=== PATIENT | female | born 1940 | race Caucasian/White ===

== ENCOUNTER 2019-03-22 10:23 | Inpatient (IN) ==
[2019-03-22] MEDS ORDERED: TYLENOL PO PRN ×2 (15:42→16:22)
[2019-03-22] MEDS ORDERED: ZOFRAN IV PRN ×2 (15:42→16:22)
[2019-03-22] MEDS ORDERED: NS 1,000 ML IV SCH (15:45)
[2019-03-22 16:26] LABS: BASO# 0.02 X1000 (0.0-0.2); BASO% 0.1 % (0.0-0.8); EOS# 0.04 X1000 (0.0-0.7); EOS% 0.2 % (0.0-10.0); HEMATOCRIT 43.9 % (37.0-47.0); IMM GRAN# 0.04 X1000 (0.0-0.04); IMM GRAN% 0.2 % (0.0-0.5); LYMPH# 1.35 X1000 (1.2-3.4); LYMPH% 8.3 % (20.5-51.1); MCH 30.4 PG (27-31); MCHC 31.9 g/dL (33-37); MCV 95.2 FL (81-99); MONO# 1.29 X1000 (0.11-0.59); MONO% 7.9 % (1.7-9.3); MPV 10.5 FL (7.4-10.4); NEUT# 13.62 X1000 (1.4-6.5); NEUT% 83.3 % (42.2-75.2); PLT 319 X1000 (130-400); RBC 4.61 XMIL (4.2-5.4); WBC 16.36 X1000 (4.8-10.8)
[2019-03-22 16:37] LABS: INR 1.02; PROTIME 13.5 Seconds (11.0-16.0)
[2019-03-22 16:38] LABS: PTT 27.6 Seconds (22.3-41.8)
[2019-03-22 16:47] LABS: ALB/GLOB RATIO 1.8; ALBUMIN 4.2 g/dL (3.5-5.0); CALCIUM 9.3 mg/dL (8.8-10.2); CREATININE 1.3 mg/dL (0.5-0.9); POTASSIUM 4.3 mmol/L (3.5-5.1); TOTAL BILIRUBIN 0.61 mg/dL (0.20-1.00); TOTAL PROTEIN 6.5 g/dL (6.3-8.3)
[2019-03-22] MEDS: NS 1,000 ML IV SCH (17:05)
[2019-03-22] MEDS: ZOSYN 3.375 GM in NS 50 ML IV SCH ×2 (17:06→22:22)
--- NOTE | 2019-03-22 17:22 | HISTORY AND PHYSICAL ---
PRIMARY CARE PROVIDER: Dr. Austen Au CHIEF COMPLAINT: Right lower quadrant back pain along with some shortness of breath. HISTORY OF PRESENT ILLNESS: Ms. Caitlin Sr is a 79-year-old female with a medical history of left ureteral stone that required stent and lithotripsy back in 2011. Also history of GERD, hypertension, hypothyroidism, depression, and low blood sugar. Presented to [facility] with at least 1 week's worth of right back pain and some bladder pain and intermittent fever but called her family member this morning at 5:30 with some shortness of breath secondary to the pain. She went to the emergency department at [facility] where she was worked up and it revealed she had acute pyelonephritis and right ureterolithiasis. The CT there of the abdomen and pelvis without contrast showed obstructive distal right ureteral stone with right perinephric stranding that could reflect pyelonephritis and it showed right nephrolithiasis along with some diverticulosis. Given that they do not have advanced or any physicians to care for urology type symptoms they spoke with Dr. Story on the phone, who then accepted the patient as a transfer here for intervention. We were asked to take this patient and follow along with her comorbidities. On further questioning her shortness of breath apparently, a little over week ago, she was taken to an urgent care and had a left-sided pneumonia according to her, she had already finished antibiotics for that. Her chest x-ray at [facility], which was a single-view did not show any acute findings. PAST MEDICAL HISTORY: 1. Hypertension. 2. Hypothyroidism. 3. Depression. 4. History of ureterolithiasis. 5. Diverticulosis. 6. Right nephrolithiasis. 7. COPD. 8. History of urinary tract infections. SURGICAL HISTORY: 1. Left ureteral stone with lithotripsy, and stent placement. 2. Skin biopsies. 3. Hysterectomy. 4. Colon resection secondary to polyps. SOCIAL HISTORY: Quit smoking in 2004. Prior to that she started at the age of 18 and smoked less than a half pack per day. No alcohol or illicit drug use. She has 2 adult children. She lives alone. FAMILY HISTORY: Mother had lung cancer. Father had diabetes. ALLERGIES: Codeine makes her climb the greenwood according to her. HOME MEDICATIONS: 1. Effexor XR 75 mg p.o. daily. 2. Norvasc 5 mg p.o. daily. 3. Extended release once a day. 4. Synthroid 75 mcg p.o. daily. She states she takes some other medicines so those still need to be reconciled here. REVIEW OF SYSTEMS: Fourteen point review of systems are complete and all were negative except for those mentioned above in the HPI. PHYSICAL EXAMINATION: VITAL SIGNS: Temperature 97.9 degrees, heart rate 59, respiratory rate 16, blood pressure 188/73, O2 saturation 96% on room air. She is 5 feet 1 inch tall, 99 pounds. BMI is 18.8. GENERAL: Ms. Caitlin Sr is a 79-year-old female. She is in no acute distress. She is able to answer questions appropriately. HEENT: Atraumatic, normocephalic. Pupils equal, round, reactive to light. Extraocular movements intact. Mucous membranes are moist. NECK: Trachea midline. CARDIOVASCULAR: S1, S2. Regular rate and rhythm. No rubs, gallops, murmurs. No lower extremity edema. +2 dorsalis and radial pulses. Negative JVD or carotid bruits. PULMONARY: Clear to auscultation. Bilateral breath sounds. No accessory muscle use or work of breathing noted. GASTROINTESTINAL: Abdomen soft, tender in the epigastric region and in the right upper quadrant region to the flank area. Positive bowel sounds x4. EXTREMITIES: Moves all extremities equally with decreased range of motion. NEUROLOGIC: A and O x3. Follows commands. Sensory is intact. She is hard of hearing. SKIN: Warm, dry, intact. LABORATORY DATA: We have no labs here yet. Reviewing labs that were sent from [facility], CBC, white blood cell count 93182, hemoglobin 14, hematocrit 43, platelet count 348,000. CMP: Sodium 137, potassium 4.2, BUN 27, creatinine is 1.2, glucose is 132, bilirubin 0.8, AST 18, ALT 16, albumin 4.4, calcium 9.4. Urinalysis positive leukocytes, negative nitrite, positive glucose and ketones, had 3+ blood in it. It was cloudy in color, had small amount of bacteria in it. IMAGING: Reported imaging at [facility]: The CT abdomen and pelvis without contrast showed obstructive distal right ureteral stone with right perinephric stranding that could reflect pyelonephritis. It also showed right nephrolithiasis and diverticulosis. Chest x-ray showed no acute cardiopulmonary process. ASSESSMENT AND PLAN: 1. Obstructive distal right ureteral stone with right perinephric stranding along with pyelonephritis. We will start her on some antibiotics. We have consulted Dr. Story for possible lithotripsy or stone extraction. 2. Chronic obstructive pulmonary disease, no exacerbation. 3. Recent treatment of pneumonia. No obvious signs and symptoms of pneumonia. 4. Depression. Continue home medications once it is verified. 5. Hypothyroidism. Continue Synthroid once it is verified. 6. Hypertension. Again home medications still need to be verified. 7. Proton pump inhibitor if we need to have that. 8. Deep venous thrombosis prophylaxis with sequential compression devices. Dictated by YAHAIRA Asif for Stevenson Esparza MD cc: YAHAIRA Asif MD Chad McElroy, MD MTDD
--- NOTE | 2019-03-22 17:33 | EKG Report ---
Test Performed on : 03/22/2019 4:21:59 PM Test Reason : rythm eval Blood Pressure : / mmHG Vent. Rate : 065 BPM Atrial Rate : 065 BPM P-R Int : 162 ms QRS Dur : 072 ms QT Int : 430 ms P-R-T Axes : 073 085 083 degrees QTc Int : 447 ms Normal sinus rhythm. 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
--- NOTE | 2019-03-22 17:57 | HISTORY AND PHYSICAL ---
ADDENDUM: I have seen and examined Ms. Sr today. At her bedside were her sister and her son. Ms. Sr was transferred from [facility] in [place] to our institution for a higher level of care. Ms. Sr presented with some right-sided abdominal discomfort and flank pain, associated with some fever about 3 days ago. She went to the outside facility where she was evaluated and was found to have a right ureteral stone with obstruction, with stranding consistent with pyelonephritis on a CT scan. She was transferred over here for urology consult. PHYSICAL EXAMINATION: GENERAL: Ms. Sr is a 79-year-old female. She is slightly underweight. She was not in any distress. HEENT: Mucosa is pink and moist. Anicteric. Acyanotic. NECK: Supple. CHEST: Air entry was bilaterally reduced. A few distant wheezing. She has a history of COPD. ABDOMEN: Soft. Tender on the right flank. EXTREMITIES: No pedal edema. FIRE LOSS PREVENTION ENGINEER: The patient is awake, alert and oriented. LABORATORY DATA: Her lab work has also been reviewed. She has slight leukocytosis with WBC of 16.35. Chemistry was also reviewed. Creatinine is 1.2. The patient's TSH is 1.26. ASSESSMENT: 1. Right-side pyelonephritis. 2. Right ureteral nephrolithiasis with obstruction. 3. Renal failure, presumably acute due to obstructive uropathy. 4. Hypothyroidism. The patient's TSH is actually low, so we will cut back on her supplement. 5. History of hypertension, stable. PLAN: In general, Ms. Sr is going to be on IV fluids and has been started on antibiotics. I have reviewed her home medications and restarted her back. Dr. Story has been notified, and he has made the patient NPO for tomorrow. Hopefully urological intervention will be done to get the stone out. We will follow up with further recommendations from Dr. Story the urologist. Please refer to the details of the history and physical that has been dictated by the VETERINARY MILK SPECIALIST in the chart. cc: Keven Tello MD
[2019-03-22 18:50] LABS: URINE SOURCE CLEAN CATCH
[2019-03-22 18:53] LABS: BILIRUBIN URINE NEGATIVE (NEGATIVE); BLOOD URINE MODERATE (NEGATIVE); COLOR STRAW; GLUCOSE URINE NEGATIVE (NEGATIVE); KETONE URINE TRACE mg/dL (NEGATIVE); LEUKOCYTES URINE NEGATIVE (NEGATIVE); NITRITE URINE NEGATIVE (NEGATIVE); PROTEIN URINE NEGATIVE (NEGATIVE); TURBIDITY URINE CLEAR (CLEAR); UROBILINOGEN URINE NORMAL (NORMAL)
[2019-03-22 18:54] LABS: UR EPITHELIAL CELLS <10 /HPF (<10); URINE BACTERIA NEGATIVE /HPF; URINE RBC TNTC /HPF (<10); URINE WBC <10 /HPF (<10)
[2019-03-22] MEDS: DEPAKOTE PO SCH (22:21)
[2019-03-22] MEDS: ZYPREXA PO SCH (22:21)
[2019-03-22] MEDS: DITROPAN PO SCH (22:21)
[2019-03-22] MEDS: REMERON PO SCH (22:21)
[2019-03-23 06:45] LABS: BASO# 0.05 X1000 (0.0-0.2); BASO% 0.5 % (0.0-0.8); EOS# 0.26 X1000 (0.0-0.7); EOS% 2.7 % (0.0-10.0); HEMATOCRIT 37.4 % (37.0-47.0); LYMPH# 1.94 X1000 (1.2-3.4); MCH 30.8 PG (27-31); MCHC 32.1 g/dL (33-37); MCV 96.1 FL (81-99); MONO# 1.01 X1000 (0.11-0.59); MONO% 10.4 % (1.7-9.3); MPV 10.3 FL (7.4-10.4); NEUT# 6.46 X1000 (1.4-6.5); NEUT% 66.4 % (42.2-75.2); PLT 268 X1000 (130-400); RBC 3.89 XMIL (4.2-5.4); RDW 14.3 % (11.5-14.5); WBC 9.72 X1000 (4.8-10.8)
[2019-03-23] MEDS: ZOSYN 3.375 GM in NS 50 ML IV SCH ×4 (06:51→23:25)
[2019-03-23] MEDS: SYNTHROID PO SCH (06:51)
--- NOTE | 2019-03-23 07:27 | Diag Imaging Result Doc PS360 ---
KUB ABDOMEN - 03/23/2019 INDICATION: Evaluation of ureteral stone passage COMPARISON: CT from 03/22/2019 FINDINGS: The stone in the distal right ureter at the level of about S2 appears to be stable from prior. IMPRESSION: No change in the obstructing right distal ureter stone projecting over the right side of the sacrum. Electronically signed by Eder Miranda 03/23/2019 7:25 AM
[2019-03-23 07:56] LABS: ALB/GLOB RATIO 1.5; ALBUMIN 3.4 g/dL (3.5-5.0); CALCIUM 8.3 mg/dL (8.8-10.2); CREATININE 1.3 mg/dL (0.5-0.9); MAGNESIUM 1.7 mg/dL (1.5-2.7); TOTAL BILIRUBIN 0.78 mg/dL (0.20-1.00); TOTAL PROTEIN 5.7 g/dL (6.3-8.3)
--- NOTE | 2019-03-23 08:04 | CONSULTATION ---
DATE OF CONSULTATION: 03/23/2019 CHIEF COMPLAINT: Right abdominal pain and obstructing right ureteral stone. HISTORY OF PRESENT ILLNESS: Ms. Sr is a 79-year-old with history of nephrolithiasis, hypertension, hypothyroidism, depression, diverticulosis, and COPD, who presents in consultation regarding right ureteral stone. The patient had presented to [facility] complaining of shortness of breath and right back pain. She was taken to the emergency room and had workup and was found to have white blood cell count of 16,000 with a creatinine of 1.2. CT scan was performed, which showed a 3 mm distal right ureteral stone with some perinephric straining. She had been transferred from [facility] as there was no urologist at that time. Evaluated her this morning, she is without any discomfort or pain. She had forgotten that she had even had any stone pain previously. She denies any fevers, chills, nausea, or vomiting. She tolerated p.o. intake last night for dinner, and states she has been voiding without issue. The patient has had prior surgical intervention for stones back [place] [address] Delaney. The patient has a history of recurrent infections, but states that she has not seen a urologist since 2011. The patient has been afebrile since admission. PAST MEDICAL HISTORY: 1. Hypertension. 2. Hypothyroidism. 3. Gastroesophageal reflux disease. 4. Depression. 5. History of kidney stones. 6. Diverticulosis. 7. COPD. 8. History of recurrent urinary tract infections. PAST SURGICAL HISTORY: 1. Left ureteroscopy with lithotripsy and stone basket extraction. 2. Hysterectomy. 3. Colon resection. ALLERGIES: Codeine. HOME MEDICATIONS: 1. Effexor 75 mg p.o. daily. 2. Norvasc 5 mg p.o. daily. 3. Synthroid 75 mcg daily. 4. Depakote 250 mg daily. 5. Cymbalta 30 mg p.o. daily. 6. Mobic 15 mg p.o. daily. 7. Metoprolol 50 mg p.o. daily. 8. Remeron 15 mg p.o. 9. Zyprexa 2.5 mg daily. 10. Ditropan 10 mg p.o. FAMILY HISTORY: Denies family history of malignancy. SOCIAL HISTORY: The patient is a former smoker, quit in 2004. She denies alcohol or illicit drug use. REVIEW OF SYSTEMS: A 12-point review of systems was performed with all pertinent positives and negatives in the HPI. PHYSICAL EXAMINATION: Vital Signs: Temperature 98.2, heart rate 63, blood pressure 179/75, oxygenation 100% on room air. General: No acute distress. Resting comfortably in bed. Alert and oriented x3. Respiratory: Good respiratory effort without audible wheezing or rales. HEENT: Normocephalic, atraumatic. Pupils equal, round, reactive to light. Mucous membranes moist. Neck: Trachea midline with no palpable masses. Cardiovascular: Regular rate and rhythm with no evidence of lower extremity edema. GI: Abdomen is soft, nontender, nondistended. No tenderness to palpation. : No suprapubic tenderness. No CVA tenderness. Musculoskeletal: Moving all extremities. Neurologic: Gross motor and sensory intact. Skin: No obvious skin lesions or rashes. LABORATORY DATA: The patient's white blood cell count this morning was 9.7, hemoglobin of 12, hematocrit 37.4, platelets 268,000. Creatinine yesterday was 1.3 with stable electrolytes. Urinalysis shows moderate blood with negative bacteria and negative leukocytes. ASSESSMENT AND PLAN: Ms. Sr is a 79-year-old with hypertension, hypothyroidism, gastroesophageal reflux disease, depression, diverticulosis, chronic obstructive pulmonary disease, and history of nephrolithiasis, who presents in consultation regarding obstructing right ureteral stone. The patient denies any pain this morning. She has remained afebrile, and had a slightly elevated white blood cell count on admission at 16, which has downtrended to 9. The patient clinically appears to be relatively stable. She denies any pain currently. She is not sure if she passed a stone, but states she has not had any discomfort since admission. She is tolerating oral intake. She feels like her breathing is improved. I encouraged her to strain all her urine. I had initially planned to make her nothing by mouth for possible surgery today. The patient seems to be clinically stable. Will obtain a KUB this morning to assess for spontaneous passage of stone. Will continue to monitor renal function. Her BMP has not returned from today. If the patient has passed a stone, would consider holding off on any intervention. I encouraged her to continue to strain her urine, remain hydrated. Will try medical expulsive therapy. If the patient has not passed her stone or develops worsening pain overnight, would have to consider surgical intervention for removal tomorrow with right ureteroscopy, lithotripsy, and stone basket extraction. This plan was discussed with the patient, and she is in agreement. Will continue to monitor from a urologic standpoint. Please call with questions or concerns. cc: Yayo Story MD MTDD
--- NOTE | 2019-03-23 10:27 | PROGRESS NOTE ---
DATE: 03/23/2019 SUBJECTIVE: This morning Ms. Sr refers to be doing well. Denies any new complaints. According to her, the lower abdominal pain has significantly improved. She has not seen passing the stone yet. OBJECTIVE: Vital signs: Blood pressure is 179/75, pulse of 63, respirations 17, temperature 98.2 degrees. General: Ms. Sr is a 79-year-old female. She is in bed in no distress. HEENT: Mucosa is pink and slightly dry. Anicteric. Acyanotic. Neck: Supple. Chest: Good air entry bilaterally. There were no crepitations, no rhonchi. Cardiovascular: Regular rate and rhythm. No murmurs, no rubs, no gallops. GI/Abdomen: Soft, minimally tender in the right flank and lower abdomen. There is an old midline surgical scar. Extremities: No pedal edema. PROJECT SPECIALIST: Patient is awake, alert and oriented. LABORATORY DATA: WBC has normalized to 9.72, hemoglobin is 12.0, platelet count of 263. Chemistry is also reviewed. Creatinine is 1.3. Rest of chemistry is unremarkable. The patient's urine culture shows no growth and blood culture still pending. CURRENT MEDICATIONS: Have all been reviewed. Antimicrobials include Zosyn. ASSESSMENT: 1. Right pyelonephritis on imagining. 2. Right ureteral nephrolithiasis with obstruction on imaging studies. 3. Renal failure presumably acute versus acute on chronic. We are going to continue to monitor the renal functions. 4. Hypothyroidism. Patient is on supplements. Dose has been readjusted. 5. Hypertension. We will continue to adjust her medications. 6. Right flank pain secondary to pyelonephritis with ureteral nephrolithiasis. 7. Constipation. Patient continues to be on bowel regimen. PLAN: So, in general, Ms. Sr seems to be doing fairly better than yesterday. Abdominal pain is improving. According to her, she has not passed the stone yet. A KUB this morning continues to show no change in the obstructing right distal ureteral stone projecting over the right side of the sacrum. The plan is to continue with the current fluids, antimicrobials and hope for medical expulsion as per Urology note. I understand if this does not happen, then they might have to go in and do some form of surgical intervention tomorrow. cc: Keven Tello MD [facility]
[2019-03-23] MEDS: VITAMIN D PO SCH (10:31)
[2019-03-23] MEDS: CYMBALTA PO SCH (10:31)
[2019-03-23] MEDS: ESTRACE PO SCH (10:31)
[2019-03-23] MEDS: TOPROL XL PO SCH (10:31)
[2019-03-23] MEDS: NS 1,000 ML IV SCH ×2 (15:13→20:29)
[2019-03-23] MEDS: REMERON PO SCH (20:35)
[2019-03-23] MEDS: ZYPREXA PO SCH (20:35)
[2019-03-23] MEDS: DEPAKOTE PO SCH (20:35)
[2019-03-23] MEDS: DITROPAN PO SCH (20:35)
[2019-03-24] MEDS: ZOSYN 3.375 GM in NS 50 ML IV SCH (05:08)
[2019-03-24] MEDS: NS 1,000 ML IV SCH ×2 (05:09→10:01)
[2019-03-24] MEDS: SYNTHROID PO SCH (06:26)
[2019-03-24] MEDS ORDERED: XYLOCAINE-MPF 2% ONE (06:37)
[2019-03-24] MEDS ORDERED: DIPRIVAN 1% ONE (06:38)
--- NOTE | 2019-03-24 07:09 | PROGRESS NOTE ---
DATE: 03/24/2019 SUBJECTIVE: No acute events overnight. Patient denies any pain or dysuria or burning. The patient has been straining her urine and states she has not passed the stone. The patient overall feels well. The patient had an x-ray yesterday that showed concern for residual stone within the right ureter itself. Denies fevers, chills, nausea or vomiting. The patient was n.p.o. in preparation for surgery today. PHYSICAL EXAMINATION: Vital Signs: Temperature 98 degrees, heart rate 60, blood pressure 148/61, oxygen saturation 100% on room air. General: No acute distress. Resting comfortably in bed. Alert and oriented x3. Respiratory: Good respiratory effort without audible wheezing or rales. Abdomen: Soft, nontender, nondistended. No palpable masses. Genitourinary: No suprapubic tenderness. No CVA tenderness. ASSESSMENT AND PLAN: Mrs. Sr was made NPO in preparation for surgery Labs have not return from today. Creatinine yesterday was 1.3. KUB from yesterday showed residual calcification overlying the sacrum in the distal right ureter. The patient is currently not complain of any pain. Vital signs are stable. I talked to her this morning and discussed intervention with right ureteroscopy and removal of stone. The patient would like to proceed with surgical intervention and removal of her stone. I discussed risks of bleeding, infection, damage to surrounding structures, need for secondary procedures. We plan to place a stent postoperatively. Culture has not shown any growth yet. If the patient does well from her surgery, we will consider discharge home later today. cc: Yayo Story MD [facility]
[2019-03-24 07:15] LABS: AGAP 10; ALB/GLOB RATIO 1.4; ALBUMIN 3.1 g/dL (3.5-5.0); ALKALINE PHOSPHATASE 40 U/L (32-104); BUN 12 mg/dL (8-22); CALCIUM 8.3 mg/dL (8.8-10.2); CHLORIDE 107 mmol/L (98-107); COSMO 282; CREATININE 0.9 mg/dL (0.5-0.9); ESTIMATED GFR > 60; GLUCOSE 88 mg/dL (70-104); GOT 15 U/L (10-30); GPT 11 U/L (10-36); MAGNESIUM 1.8 mg/dL (1.5-2.7); POTASSIUM 4.1 mmol/L (3.5-5.1); SODIUM 142 mmol/L (136-145); TCO2 25 mmol/L (25-35); TOTAL BILIRUBIN 0.66 mg/dL (0.20-1.00); TOTAL PROTEIN 5.3 g/dL (6.3-8.3)
[2019-03-24] MEDS ORDERED: DECADRON ONE (07:47)
[2019-03-24] MEDS ORDERED: ZOFRAN ONE (07:47)
[2019-03-24 08:01] LABS: BASO# 0.07 X1000 (0.0-0.2); EOS# 0.39 X1000 (0.0-0.7); EOS% 5.4 % (0.0-10.0); HEMATOCRIT 35.4 % (37.0-47.0); LYMPH% 19.3 % (20.5-51.1); MCH 30.7 PG (27-31); MCHC 31.1 g/dL (33-37); MCV 98.9 FL (81-99); MONO# 0.94 X1000 (0.11-0.59); MPV 10.9 FL (7.4-10.4); NEUT# 4.44 X1000 (1.4-6.5); NEUT% 61.3 % (42.2-75.2); PLT 229 X1000 (130-400); RBC 3.58 XMIL (4.2-5.4); RDW 14.4 % (11.5-14.5); WBC 7.24 X1000 (4.8-10.8)
--- NOTE | 2019-03-24 08:49 | OPERATIVE NOTE ---
PROCEDURE DATE: 03/24/2019 PREOPERATIVE DIAGNOSES: 1. Right ureteral stone. 2. Hydronephrosis. POSTOPERATIVE DIAGNOSES: 1. Right ureteral stone. 2. Hydronephrosis. PROCEDURES PERFORMED: 1. Cystoscopy. 2. Right ureteroscopy with laser lithotripsy 3. Stone basket extraction. 4. Right retrograde pyelogram. 5. Right ureteral stent placement. SURGEON: Yayo Story M.D. FINISH MILL OPERATOR: None. COMPLICATIONS: None. BLOOD LOSS: Zero. SPECIMENS REMOVED: Right ureteral stone. ANESTHESIA: LMA. INDICATIONS FOR PROCEDURE: Mrs. Sr is a 79-year-old who initially presented to [facility] complaining of abdominal pain and shortness of breath. The patient had a CT scan, which showed a 3 mm obstructing right distal ureteral stone with associated hydronephrosis. The patient was transferred to [facility] for urologic evaluation. The patient was evaluated and was complaining of no pain, had a white blood cell count of 9 yesterday, with a creatinine of 1.3. The patient had an x-ray, which showed residual stone in the distal ureter. I talked with the patient and recommended surgical intervention. Risks, benefits, and alternatives to the procedure were discussed with the patient. The patient elected to proceed. DESCRIPTION OF PROCEDURE: After informed consent was obtained, the patient was brought to the operating room and placed on the operating table in the supine position. The patient received preoperative antibiotics, underwent LMA placement. She was then positioned in a dorsal lithotomy position, and was prepped and draped in the usual sterile fashion. A preoperative time-out was performed with all parties in agreement, including anesthesia, surgical, and nursing staff. At which point I inserted a 21-Niuean cystourethroscope through the urethra, showing a normal-caliber urethra. A small cystocele was visualized. The entirety of the bladder was inspected with no diverticulum, cellules, or trabeculations. Cesspool Cleaner fluoroscopy showed a calcification seen in the distal right ureter, overlying the sacrum. No other calcifications were seen on liquid center assembler x-ray. At which point, a wire was then passed through the scope, and it went up and coiled within the kidney itself. The cystourethroscope was removed. The bladder was drained, and then a semi-rigid ureteroscope was able to be advanced through the urethra, into the bladder. Once in the bladder, the right ureteral orifice was cannulized, and advanced this to the site of the stone in the mid- to-distal ureter. The stone was encountered and then fragmented using a 365 micron laser fiber with settings of 0.6 and 6. The stone was broken up in several pieces, and these were extracted using a Adam basket, and dropped on the bladder for later retrieval. I was able to advance the ureteroscope all the way up to the ureteropelvic junction with no residual calcifications or stone debris seen. I slowly withdrew the ureteroscope, which outlined no significant trauma to the ureter, and the ureteroscope was completely removed. A wire was then back loaded through the cystourethroscope, and a 6 x 24 cm stent was advanced over the wire, and a good coil was seen within the pole of the kidney, and endoscopically visualized in the bladder. Good drainage was seen through and around the stent. All stone fragments were drained from the bladder. The strings had several knots tied, and then they were cut short for comfort. The patient was then awoken and was taken to recovery in stable condition. DISPOSITION: The patient will be transferred back to the floor, and likely can be discharged later today. Will give her antibiotics as well as pain medication. cc: MD JANE Badillo
[2019-03-24] MEDS: TOPROL XL PO SCH (08:55)
[2019-03-24] MEDS: CYMBALTA PO SCH (08:55)
[2019-03-24] MEDS: VITAMIN D PO SCH (08:55)
[2019-03-24] MEDS: ESTRACE PO SCH (08:55)
[2019-03-24] MEDS ORDERED: PERIDEX MT SCH (09:00)
--- NOTE | 2019-03-24 09:52 | Diag Imaging Result Doc PS360 ---
RETROGRADES 2 OR 3 FILMS - 03/24/2019 INDICATION: RT. STONE, LASER, RETROGRADE, RT. STENT PLACEMENT TECHNIQUE: Right sided ureterogram. The exam was performed by the patient's urologist. Eight images were obtained. COMPARISON: CT from 03/22/2019 FINDINGS: There was moderate hydroureteronephrosis diffusely on the right side. The reason is unclear. No filling defect or definite stricture. A right nephroureteral stent was placed in good position. IMPRESSION: Indeterminate right hydroureteronephrosis. Good right ureteral stent placement. Electronically signed by Eder Miranda 03/24/2019 9:50 AM
[2019-03-24 11:26] VITALS: BP 116/83
--- NOTE | 2019-03-24 13:02 | DISCHARGE SUMMARY ---
ADMISSION DATE: 03/22/2019 DISCHARGE DATE: 03/24/2019 DISPOSITION: Home. FOLLOW-UP: Dr. Story. CONSULTATION DURING THIS ADMISSION: Urology was consulted. Patient was seen by Dr. Story. INVASIVE PROCEDURES DONE DURING THIS ADMISSION: Cystoscopy, right ureteroscopy with laser lithotripsy, stone basket extraction, right retrograde pyelogram, and a right ureteral stent placement was done by Dr. Story on 03/24/2019. IMAGING STUDIES OF SIGNIFICANCE: A KUB showed no change in the obstructing right distal ureter stone. The right ureterogram shows intermediate right hydroureteronephrosis. Good right ureteral stent placement. ADMISSION DIAGNOSIS: 1. Obstructive distal right ureteral stone with right perinephric stranding. 2. Chronic obstructive pulmonary disease. 3. Depression. 4. Hypothyroidism. 5. Hypertension. DIAGNOSIS AT THE TIME OF DISCHARGE: 1. Right ureteral nephrolithiasis with obstruction on imaging. 2. Right perinephric stranding concerning for right pyelonephritis. Urine culture has been negative. Blood culture is also negative and I understand the urine culture from [facility] was also negative. 3. Hypothyroidism. 4. Hypertension. 5. Constipation. 6. Acute kidney injury, resolved DISCHARGE MEDICATIONS: 1. Depakote 250 p.o. at bedtime. 2. Cymbalta 30 mg p.o. daily. 3. Metoprolol 50 mg p.o. daily. 4. Olanzapine 2.5 mg p.o. at bedtime. 5. Oxybutynin 10 mg at bedtime. 6. Mirtazapine 50 mg p.o. at bedtime. 7. Levothyroxine 88 mcg p.o. q.a.m. 8. Pyridium 100 mg q. 6 hourly. 9. Ceftin 250 p.o. q. 12 hourly. PRESENTING COMPLAINT: Right lower quadrant pain. HISTORY OF PRESENTING COMPLAINT: Ms. Sr is a 79-year-old female with multiple comorbidities including COPD, hypothyroidism, hypertension, history of a right nephrolithiasis in the past, presented to [facility] because of right lower quadrant pain. She was evaluated over there including a CT scan which revealed a distal right ureteral stone obstruction with right perinephric stranding that could be reflective of pyelonephritis. Discussions were held with Dr. Story. Patient was accepted to be transferred to [facility] for higher level of care. Ms. Sr was successfully transferred and was admitted to the hospital services. HOSPITAL COURSE: Ms. Sr was started on IV fluids and antibiotic IV antibiotics. Dr. Story was from reconsulted. He evaluated the patient here. Initially a conservative approach was recommended and a KUB was done, however, that still showed that there was persistent obstruction and the patient was still symptomatic, so a decision was made to go and intervene. This morning Ms. Sr underwent surgical exploration and stone was removed and a stent was placed. Please refer to the details of Dr. Story's surgical report. After the surgery, Dr. Story called me and notified me about the procedure and also the fact that Ms. Sr can be discharged from his standpoint. After the procedure, Ms. Sr will continues to be doing well. She remained completely asymptomatic. We think she is fairly stable to be discharged. Dr. Story has already written up Ceftin and Pyridium for her. We have advised that she continues on her home medications. Her home medications which included levothyroxine of 125 mcg p.o. 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 All the discharge instructions have been discussed with her and she voiced understanding. Of note, her creatinine has normalized to 0.9 from 1.3 on admission. TIME SPENT FOR DISCHARGE: 35 minutes. cc: Keven Tello MD
== END 2019-03-24 12:14 | disposition home or self-care (01) | DRG 660 ==
LOC: SUATTDRO 10:23 → DIRADM 10:23 → 4N 15:13
PROVIDERS: ATTEND Internal Medicine